=== PATIENT | female | born 2000 | race Caucasian/White ===

== ENCOUNTER 2023-11-25 01:21 | Emergency (ER) | payer OTHER, SELFPAY ==
[2023-11-25 01:27] VITALS: BP 103/63; PULSE 86; RESP 15; TEMP 36.4; O2SAT 100
--- NOTE | 2023-11-25 01:54 | ECG_ITS ---
Measurements Intervals [place] Rate: 85 P: 72 NH: 154 QRS: 74 QRSD: 90 T: 54 QT: 369 QTc: 440 Interpretive Statements SINUS RHYTHM BASELINE ARTIFACT- I, II, III, AVR, AVL, AVF, V3-V5 NORMAL ECG NO PREVIOUS ECG AVAILABLE FOR COMPARISON Electronically Signed On 11-25-2023 6:44:34 [facility] PROGRAM COORDINATOR by Rob Holly D.O.
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
[2023-11-25] MEDS: SODIUM CHLORIDE 0.9% IV 1,000 ML 999 ML IV CONT ×2 (02:19)
[2023-11-25 02:23] VITALS: BP 102/68; PULSE 79; RESP 15; O2SAT 100
[2023-11-25 02:31] LABS: Basophils Percent Auto 0.6 % (0.2-1.2); Hematocrit 37.5 % (37.0-47.0); Hemoglobin 12.4 g/dL (12.0-15.0); Immature Granulocyte Absolute 0.02 K/mm3 (0.00-0.031); Immature Granulocyte Percent A 0.3 % (0-0.5); Lymphocytes Absolute Auto 1.83 K/mm3 (0.9-3.2); Lymphocytes Percent Auto 28.8 % (18.3-44.2); Mean Corpuscular HGB Conc 33.1 g/dl (32-36); Mean Corpuscular Hemoglobin 29.2 pg (26-34); Mean Corpuscular Volume 88.4 fl (80-100); Mean Platelet Volume 8.9 fl (7.4-10.4); Monocytes Absolute Auto 0.5 K/mm3 (0.1-0.6); Monocytes Percent Auto 8.5 % (2.6-8.5); Neutrophils Absolute Auto 3.9 K/mm3 (1.3-6.7); Neutrophils Percent Auto 61.8 % (45.5-73.1); Platelet Count Result 272 k/mm3 (150-375); Red Blood Count 4.24 M/mm3 (4.2-5.4); Red Cell Distribution Width 12.4 % (11.5-14.5); White Blood Count 6.4 K/mm3 (4.5-10.0)
[2023-11-25 02:48] LABS: Ethanol 39 mg/dL (<10)
[2023-11-25 02:51] LABS: Glucose Point of Care 101 mg/dl (65-105)
[2023-11-25 03:06] LABS: Alanine Aminotransferase 20 U/L (6-35); Albumin Level 4.2 g/dL (3.5-5.1); Alkaline Phosphatase 60 U/L (38-126); Anion Gap 11 mmol/L (8-16); Aspartate Amino Transferase 28 U/L (14-36); Bilirubin,Total 0.4 mg/dL (0.2-1.3); Blood Urea Nitrogen 10 mg/dL (7-17); Calcium 8.9 mg/dL (8.4-10.2); Carbon Dioxide 22 mmol/L (22-30); Chloride 106 mmol/L (98-107); Estimated CRCL calculation 105 ml/min; Estimated Glomerular Filt Rate > 60; Glucose 83 mg/dL (65-110); Magnesium 2.1 mg/dL (1.6-2.3); Potassium 4.5 mmol/L (3.4-5.0); Sodium 139 mmol/L (137-145)
--- NOTE | 2023-11-25 03:13 | PC.NURSE ---
Patient attempted to urinate on her own without success; refusing straight cath at this time.
[2023-11-25 03:21] LABS: Thyroid Stimulating Hormone Reflex 0.815 uIU/mL (0.465-4.68)
[2023-11-25 03:34] LABS: SPREG INTERNAL CONTROL Positive; Serum Qual hCG Negative
[2023-11-25 04:44] LABS: Appearance Urine Clear (Clear); Bilirubin Urine Negative (Negative); Blood Urine Negative (Negative); Color Urine Yellow (Yellow); Glucose Urine UA Negative (Negative); Ketones Urine Negative (Negative); Leukocyte Esterase Ur Negative LEU/UL (Negative); Nitrate Urine Negative (Negative); Protein Urine Negative (Negative); Specific Grav Ur 1.009 (1.001-1.035); Urobilinogen Urine 0.2 mg/dL (<2.0); pH Urine 5.5 (5.0-9.0)
[2023-11-25 05:01] LABS: Barbiturate Screen Urine Negative (Negative); Benzodiazepines Screen Urine Positive (Negative)
[2023-11-25 05:07] LABS: Amphetamine Screen Urine Negative (Negative); Cocaine Screen Urine Negative (Negative); Methadone Screen Urine Negative (Negative); Opiate Screen Urine Negative (Negative); Phencyclidine Screen Urine Negative (Negative)
[2023-11-25 05:09] VITALS: BP 104/56; PULSE 86; RESP 16; O2SAT 98
[2023-11-25 05:21] LABS: Cannabinoid Screen Urine Positive (Negative)
[2023-11-25 05:24] LABS: Add Urine Microscopic? NO
[2023-11-25 06:21] VITALS: BP 104/68; PULSE 60; RESP 16; O2SAT 98
== END 2023-11-25 06:23 | disposition home or self-care (01) ==
PROVIDERS: Emergency Provider Student in an Organized Health Care Education/Training Program; PCP Pediatrics
DX: G40.909 Epilepsy, unspecified, not intractable, without status epilepticus (principal); F10.90 Alcohol use, unspecified, uncomplicated; Y90.1 Blood alcohol level of 20-39 mg/100 ml; T42.6X6A Underdosing of other antiepileptic and sedative-hypnotic drugs, initial encounter
CPT/HCPCS: 36415; 80053; 80307; 81003; 81025; 82948; 83735; 84443; 84703; 85025; 93005; 96361; 96365; 99284; J1953; J7030